=== PATIENT | female | born 1950 ===

== ENCOUNTER 2023-01-17 06:05 | Day surgery (SDC) | payer OTHER ==
[~2023-01-17 06:05] MED LIST: ELAVIL PO; FIORICET 50-301 EACH PO; GLUCOTROL10 MG PO; LOTREL 10-40 M1 EACH PO; LOTREL 10/40 MG1 CAP PO; LYRICA50 MG PO; METFORMIN HCL850 M1 PO; METFORMIN HCL850 MG PO; NEURONTIN800 MG PO; PNEU16DI2 IJ; TOPROL XL25 M1 PO; ULTRAN PO; ZYRTEC10 M3 PO
== END 2023-01-17 13:30 | disposition home or self-care (01) ==
LOC: CIR.AMB 06:05
PROVIDERS: ATTEND Orthopaedic Surgery Hand Surgery
DX: M65.321 Trigger finger, right index finger (principal); M65.341 Trigger finger, right ring finger; E11.9 Type 2 diabetes mellitus without complications; E78.00 Pure hypercholesterolemia, unspecified; Z88.0 Allergy status to penicillin; Z88.6 Allergy status to analgesic agent; Z20.822 Contact with and (suspected) exposure to COVID-19